=== PATIENT | female | born 1980 | race Caucasian/White ===

== ENCOUNTER → 2020-09-23 | Outpatient (CLI) | payer OTHER ==
[~2020-09-23] MED LIST: ALDACTONE25 MG PO; BACTRIM DS TAB1 EACH PO; CEFUROXIME250 MG PO; COLACE 100MG C100 MG PO; COREG 3.125M3.125 MG PO; DEPAKOTE500 MG PO; DILANTIN100 MG PO; ECOTRIN81 MG PO; ENTRESTO 24 MG1 EACH PO; FIBERCON625 MG PO; FOLIC ACID 1 MG1 MG PO; IBUPROFEN800 MG PO; IMDUR ER TAB 3030 MG PO; KEPPRA 500 MG500 MG PO; LASIX20 MG PO; NEURONTIN 400400 MG PO; POTASSIUM CHLO10 MEQ PO; PROZAC20 MG PO; THERAGRAN M TAB1 EA PO; TOPROL XL25 MG PO; VISTARIL 50 MG50 MG PO; XANAX0.5 MG PO; XARELTO10 MG PO; ZAROXOLYN/DIUL2.5 MG PO
== END ==
LOC: OPSV 10:00
DX: I87.2 Venous insufficiency (chronic) (peripheral) (principal)
CPT/HCPCS: 96523; J1642

== ENCOUNTER → 2020-12-16 | Outpatient (CLI) | payer OTHER ==
[~2020-12-16] VITALS: Ht 167.6 cm; Wt 108.9 kg
== END ==
LOC: OPSV 06:52
DX: I87.2 Venous insufficiency (chronic) (peripheral) (principal)
CPT/HCPCS: 96523; J1642

== ENCOUNTER → 2021-02-06 | Outpatient (CLI) | payer OTHER | LOC: OPSV 01-30 11:00 | DX: I87.2 Venous insufficiency (chronic) (peripheral) (principal) | CPT/HCPCS: 96523; J1642 ==

== ENCOUNTER → 2021-04-01 | Outpatient (CLI) | payer OTHER ==
[~2021-04-01] VITALS: Ht 172.7 cm; Wt 98.0 kg
== END ==
LOC: OPSV 12:00
DX: Z45.2 Encounter for adjustment and management of vascular access device (principal); I87.2 Venous insufficiency (chronic) (peripheral); N91.1 Secondary amenorrhea; E22.1 Hyperprolactinemia
CPT/HCPCS: 96523; J1642

== ENCOUNTER → 2021-07-17 | Outpatient (CLI) | payer OTHER | LOC: OPSV 10:00 | DX: I87.2 Venous insufficiency (chronic) (peripheral) (principal); Z45.2 Encounter for adjustment and management of vascular access device | CPT/HCPCS: 96523; J1642 ==

== ENCOUNTER 2021-09-17 16:40 | Emergency (ER) | payer OTHER | END 2021-09-17 16:44 | disposition left against medical advice (07) | LOC: ER1 16:40 | DX: Z53.21 Procedure and treatment not carried out due to patient leaving prior to being seen by health care provider (principal) ==

== ENCOUNTER → 2021-09-24 | Outpatient (CLI) | payer OTHER | LOC: HEART 5 09:39 | DX: R06.2 Wheezing (principal); R06.00 Dyspnea, unspecified | CPT/HCPCS: 94060; 94729 ==

== ENCOUNTER 2021-09-29 15:00 | Inpatient (IN) | payer OTHER ==
[~2021-09-29] VITALS: Ht 170.2 cm; Wt 129.4 kg
[~2021-09-29 15:00] MED LIST changes: +ASPIRIN325 MG PO; -ECOTRIN81 MG PO; -XARELTO10 MG PO; +XARELTO20 MG PO
[2021-09-29 16:17] LABS: RED BLOOD COUNT 4.73 M/UL (4.00-5.10); WHITE BLOOD COUNT 9.1 K/UL (4.5-11.0)
[2021-09-29 16:44] LABS: BUN/CREATININE RATIO 14 (0-10)
[2021-09-30 05:02] LABS: HEMOGLOBIN 12.8 gm/dl (12.3-15.3); RED BLOOD COUNT 4.32 M/UL (4.00-5.10); WHITE BLOOD COUNT 7.3 K/UL (4.5-11.0)
[2021-09-30 05:26] LABS: BUN/CREATININE RATIO 15 (0-10)
[2021-09-30] MEDS ORDERED: BUPRENORPHIN-N1 EACH SL (09:53)
[2021-09-30] MEDS ORDERED: LINZESS290 MCG PO (09:54)
[2021-09-30] MEDS ORDERED: METOPROLOL SUCC25 MG PO (09:54)
[2021-09-30] MEDS ORDERED: MIRTAZAPINE15 MG PO (09:55)
[2021-09-30] MEDS ORDERED: RISPERIDONE1 MG PO (09:55)
[2021-09-30] MEDS ORDERED: NITROGLYCERIN0.4 MG SL (09:55)
[2021-09-30] MEDS ORDERED: PROMETHAZINE12.5 M1 PO (09:56)
[2021-09-30] MEDS ORDERED: OMEPRAZOLE20 MG PO (09:56)
[2021-10-01 05:00] LABS: HEMOGLOBIN 13.8 gm/dl (12.3-15.3); RED BLOOD COUNT 4.67 M/UL (4.00-5.10); WHITE BLOOD COUNT 8.3 K/UL (4.5-11.0)
[2021-10-01 05:33] LABS: BUN/CREATININE RATIO 18 (0-10)
[2021-10-02 10:00] LABS: HEMOGLOBIN 13.2 gm/dl (12.3-15.3); RED BLOOD COUNT 4.62 M/UL (4.00-5.10)
--- NOTE | 2021-10-03 09:59 | NUR ---
NOTIFIED DR MATHEWS OF ELEVATED CREATININE AND ORDER FOR BUMEX. ORDER TO HOLD BUMEX AT THIS TIME AND STAT LABS.
[2021-10-03 10:19] LABS: HEMOGLOBIN 12.9 gm/dl (12.3-15.3); RED BLOOD COUNT 4.39 M/UL (4.00-5.10); WHITE BLOOD COUNT 6.1 K/UL (4.5-11.0)
[2021-10-04 06:05] LABS: HEMOGLOBIN 12.3 gm/dl (12.3-15.3); RED BLOOD COUNT 4.29 M/UL (4.00-5.10); WHITE BLOOD COUNT 7.2 K/UL (4.5-11.0)
[2021-10-05 09:59] LABS: HEMOGLOBIN 12.7 gm/dl (12.3-15.3); RED BLOOD COUNT 4.4 M/UL (4.00-5.10); WHITE BLOOD COUNT 5.8 K/UL (4.5-11.0)
[2021-10-05 10:30] LABS: BUN/CREATININE RATIO 32 (0-10)
[2021-10-07 05:43] LABS: HEMOGLOBIN 12.3 gm/dl (12.3-15.3); RED BLOOD COUNT 4.2 M/UL (4.00-5.10); WHITE BLOOD COUNT 6.3 K/UL (4.5-11.0)
[2021-10-07 05:50] LABS: BUN/CREATININE RATIO 33 (0-10)
[2021-10-07] MEDS ORDERED: HYDROXYZINE PAM25 MG PO (19:48)
[2021-10-07] MEDS ORDERED: BENZONATATE100 MG PO (19:48)
[2021-10-07] MEDS ORDERED: LASIX20 MG PO (19:48)
[2021-10-07] MEDS ORDERED: PROAIR HFA8.5 GM INH (19:54)
[2021-10-08 07:44] LABS: HEMOGLOBIN 11.7 gm/dl (12.3-15.3); RED BLOOD COUNT 3.98 M/UL (4.00-5.10); WHITE BLOOD COUNT 5.8 K/UL (4.5-11.0)
[2021-10-08 08:05] LABS: BUN/CREATININE RATIO 28 (0-10)
== END 2021-10-08 17:04 | disposition home or self-care (01) | DRG 291 ==
LOC: ER1 15:00 → CDU 19:05 → MED SURG 4 19:05
PROVIDERS: Internal Medicine; Physician Assistant; ADMIT Internal Medicine
PROC: B24BZZZ Ultrasonography of Heart with Aorta (ICD-10-PCS; principal; 2021-09-30)
DX: I11.0 Hypertensive heart disease with heart failure (principal); I50.23 Acute on chronic systolic (congestive) heart failure; J96.21 Acute and chronic respiratory failure with hypoxia; Z20.822 Contact with and (suspected) exposure to COVID-19; J96.22 Acute and chronic respiratory failure with hypercapnia; O90.3 Peripartum cardiomyopathy; E66.2 Morbid (severe) obesity with alveolar hypoventilation; G47.33 Obstructive sleep apnea (adult) (pediatric); F17.210 Nicotine dependence, cigarettes, uncomplicated; I42.9 Cardiomyopathy, unspecified; I48.91 Unspecified atrial fibrillation; G40.909 Epilepsy, unspecified, not intractable, without status epilepticus; I27.20 Pulmonary hypertension, unspecified; E87.6 Hypokalemia; I07.1 Rheumatic tricuspid insufficiency; Z79.01 Long term (current) use of anticoagulants; Z79.82 Long term (current) use of aspirin; Z98.891 History of uterine scar from previous surgery; Z98.51 Tubal ligation status; Z80.8 Family history of malignant neoplasm of other organs or systems; Z83.6 Family history of other diseases of the respiratory system; Z68.39 Body mass index [BMI] 39.0-39.9, adult
CPT/HCPCS: ECHO; 0240U; 36415; 36600; 71045; 71046; 71275; 80048; 80053; 81001; 82550; 82553; 82803; 83605; 83735; 83874; 83880; 84100; 84132; 84484; 84703; 85025; 85027; 85379; 86140; 93005; 93306; 94664; 96374; 99285; G0378; J1940; Q0177; Q9967

== ENCOUNTER → 2021-11-07 | Outpatient (CLI) | payer OTHER ==
[~2021-11-07] VITALS: Ht 167.6 cm; Wt 108.9 kg
[~2021-11-07] MED LIST changes: +BENZONATATE100 MG PO; +BUPRENORPHIN-N1 EACH SL; +HYDROXYZINE PAM25 MG PO; +LINZESS290 MCG PO; +METOPROLOL SUCC25 MG PO; +MIRTAZAPINE15 MG PO; +NITROGLYCERIN0.4 MG SL; +OMEPRAZOLE20 MG PO; +PROAIR HFA8.5 GM INH; +PROMETHAZINE12.5 M1 PO; +RISPERIDONE1 MG PO
== END ==
LOC: OPSV 13:43
DX: I87.2 Venous insufficiency (chronic) (peripheral) (principal)
CPT/HCPCS: 96523

== ENCOUNTER → 2021-12-05 | Outpatient (CLI) | payer OTHER ==
[~2021-12-05] VITALS: Ht 167.6 cm; Wt 108.9 kg
== END ==
LOC: OPSV 13:18
DX: Z45.2 Encounter for adjustment and management of vascular access device (principal); I87.2 Venous insufficiency (chronic) (peripheral)
CPT/HCPCS: 96523; J1642

== ENCOUNTER → 2022-03-19 | Outpatient (CLI) | payer OTHER ==
[~2022-03-19] VITALS: Ht 167.6 cm; Wt 108.9 kg
== END ==
LOC: OPSV 13:09
DX: Z45.2 Encounter for adjustment and management of vascular access device (principal); I87.2 Venous insufficiency (chronic) (peripheral)
CPT/HCPCS: 96523; J1642

== ENCOUNTER → 2022-04-30 | Outpatient (CLI) | payer OTHER | LOC: OPSV 04-16 13:00 | DX: Z45.2 Encounter for adjustment and management of vascular access device (principal); I87.2 Venous insufficiency (chronic) (peripheral) | CPT/HCPCS: 96523 ==